=== PATIENT | male | born 1960 | race Caucasian/White ===

== ENCOUNTER 2018-03-30 06:59 | Inpatient (IN) | payer BC ==
[~2018-03-30] VITALS: Ht 193 cm; Wt 117.9 kg
[2018-03-30 07:05] VITALS: Ht 193 cm; Wt 117.9 kg
[2018-03-30 08:03] LABS: PLATELET COUNT 165 x10^3mcL (130-400); RED CELL DISTRIBUTION WIDTH 12.8 % (11.5-14.5)
[2018-03-30 08:17] LABS: CALCIUM 9.2 mg/dL (8.5-10.1); CHLORIDE SERUM 98 mmol/L (98-107); CREATININE SERUM 1.2 mg/dL (0.7-1.3); GFR1 > 60 mL/min; GLUCOSE SERUM 188 mg/dL (74-106); POTASSIUM SERUM 3.7 mmol/L (3.5-5.1); SODIUM SERUM 134 mmol/L (136-145)
[2018-03-30 08:22] LABS: BAND NEUTROPHIL 7 % (0-10); BASOPHIL 0 % (0-2); MONOCYTE 2 % (0-7); SEGMENTED NEUTROPHILS 88 % (37-75)
[2018-03-30 08:23] LABS: PLATELET MORPHOLOGY PLATELETS DECREASED; rbc morphology (normal/abnorm) ABNORMAL (NORMAL)
[2018-03-30 08:28] LABS: ALBUMIN 3.8 g/dL (3.4-5.0); ALKALINE PHOSPHATASE 88 U/L (46-116); ALT/SGPT 41 U/L (16-63); AMYLASE 28 U/L (25-115); AST/SGOT 22 U/L (15-37); BILIRUBIN TOTAL 1.78 mg/dL (0.20-1.00); CHOLESTEROL 145 mg/dL (<200); HDL CHOLESTEROL 37 mg/dL (40-60); LIPASE 133 IU/L (73-393); MAGNESIUM 1.3 mg/dL (1.8-2.4); TOTAL PROTEIN, SERUM 7.1 g/dL (6.4-8.2)
[2018-03-30 09:10] LABS: microscopic required? NO
[2018-03-30 09:36] LABS: urine erythrocyte NEGATIVE (NEGATIVE)
[2018-03-30] MEDS ORDERED: ATORVASTATIN CA40 M1 PO (10:16)
[2018-03-30] MEDS ORDERED: METFORMIN HCL750 MG PO (10:16)
[2018-03-30] MEDS ORDERED: GOOD SENSE OMEP20 MG PO (10:16)
[2018-03-30 10:32] LABS: AMPHETAMINE QUAL UR NONE DETECTED (See below)
[2018-03-30 12:11] LABS: T3 TOTAL 0.86 ng/mL
[2018-03-30 12:13] LABS: FREE T4 0.91 ng/dL (0.76-1.46); FREE THYROXINE INDEX 1.8 ug/dL (1.4-4.5); T4(THYROXINE) 5.4 ug/dL (4.7-13.3)
[2018-03-30 13:17] VITALS: BP 96/60
[2018-03-30 13:44] VITALS: BP 80/43
[2018-03-30 15:00] VITALS: BP 105/78
[2018-03-30 20:00] VITALS: BP 112/75
[2018-03-31 00:17] VITALS: BP 108/74
[2018-03-31 03:05] VITALS: BP 99/54
[2018-03-31 05:21] LABS: PLATELET COUNT 138 x10^3mcL (130-400); RED CELL DISTRIBUTION WIDTH 13.1 % (11.5-14.5)
[2018-03-31 05:22] LABS: BASOPHIL % 0 % (0-2)
[2018-03-31 05:28] LABS: CALCIUM 7.3 mg/dL (8.5-10.1); CARBON DIOXIDE 25.1 mmol/L (21-32); CHLORIDE SERUM 103 mmol/L (98-107); CREATININE SERUM 0.9 mg/dL (0.7-1.3); GFR1 > 60 mL/min; GLUCOSE SERUM 160 mg/dL (74-106); POTASSIUM SERUM 3.5 mmol/L (3.5-5.1); SODIUM SERUM 136 mmol/L (136-145)
[2018-03-31 07:21] VITALS: BP 98/63
[2018-03-31 11:30] VITALS: BP 114/59
[2018-03-31 15:30] VITALS: BP 122/74
[2018-03-31 21:12] VITALS: BP 112/68
[2018-04-01 06:05] VITALS: BP 122/79
[2018-04-01 09:25] VITALS: BP 127/79
[2018-04-01] MEDS ORDERED: BACTRIM DS1 TAB PO (10:32)
[2018-04-01 12:31] VITALS: BP 135/81
[2018-04-01 12:38] VITALS: BP 135/81
[2018-04-01 13:55] LABS: ALKALINE PHOSPHATASE 103 U/L (46-116); ALT/SGPT 71 U/L (16-63); AST/SGOT 57 U/L (15-37); BILIRUBIN TOTAL 1.35 mg/dL (0.20-1.00); CALCIUM 8.3 mg/dL (8.5-10.1); CARBON DIOXIDE 25.7 mmol/L (21-32); CHLORIDE SERUM 104 mmol/L (98-107); CREATININE SERUM 0.9 mg/dL (0.7-1.3); GFR1 > 60 mL/min; GLUCOSE SERUM 188 mg/dL (74-106); POTASSIUM SERUM 3.6 mmol/L (3.5-5.1); SODIUM SERUM 138 mmol/L (136-145); TOTAL PROTEIN, SERUM 6.3 g/dL (6.4-8.2)
[2018-04-01 14:06] LABS: ALBUMIN 2.9 g/dL (3.4-5.0)
== END 2018-04-01 15:23 | disposition home or self-care (01) | DRG 872 ==
LOC: ED 06:59 → DU 09:17 → IC 09:17 → DU 10:55 → IC 14:31 → DU 03-31 19:11
PROVIDERS: Emergency Medicine; Family Medicine; Internal Medicine
DX: A41.9 Sepsis, unspecified organism (principal); E87.1 Hypo-osmolality and hyponatremia; L03.115 Cellulitis of right lower limb; E78.5 Hyperlipidemia, unspecified; Z96.653 Presence of artificial knee joint, bilateral; E11.65 Type 2 diabetes mellitus with hyperglycemia; E83.42 Hypomagnesemia; E78.00 Pure hypercholesterolemia, unspecified; E66.01 Morbid (severe) obesity due to excess calories; R65.20 Severe sepsis without septic shock; E11.51 Type 2 diabetes mellitus with diabetic peripheral angiopathy without gangrene; E11.621 Type 2 diabetes mellitus with foot ulcer; E11.40 Type 2 diabetes mellitus with diabetic neuropathy, unspecified; L97.519 Non-pressure chronic ulcer of other part of right foot with unspecified severity; Z90.89 Acquired absence of other organs; Z88.0 Allergy status to penicillin; Z83.3 Family history of diabetes mellitus; Z79.84 Long term (current) use of oral hypoglycemic drugs; Z79.899 Other long term (current) drug therapy; Z68.31 Body mass index [BMI] 31.0-31.9, adult
CPT/HCPCS: 36600; 83880; 84439; 97535-GP; G0480; J1644; J1956; J2543; J3370; J3475; J3490; J7030; J7040; Q0092

== ENCOUNTER 2018-12-12 04:24 | Emergency (ER) | payer SELFPAY ==
[~2018-12-12] VITALS: Ht 182.9 cm; Wt 113.4 kg
[~2018-12-12 04:24] MED LIST: ATORVASTATIN CA40 M1 PO; BACTRIM DS1 TAB PO; GOOD SENSE OMEP20 MG PO; METFORMIN HCL750 MG PO
[2018-12-12 04:31] VITALS: Ht 182.9 cm; Wt 113.4 kg
[2018-12-12 05:40] LABS: BASOPHIL % 0.3 % (0-2); PLATELET COUNT 160 x10^3mcL (130-400); RED CELL DISTRIBUTION WIDTH 13.7 % (11.5-14.5)
[2018-12-12 05:52] LABS: CARBON DIOXIDE 28.2 mmol/L (21-32); CHLORIDE SERUM 102 mmol/L (98-107); GFR1 > 60 mL/min; GLUCOSE SERUM 136 mg/dL (74-106); SODIUM SERUM 140 mmol/L (136-145)
[2018-12-12 05:56] LABS: ALBUMIN 3.9 g/dL (3.4-5.0); ALKALINE PHOSPHATASE 66 U/L (46-116); ALT/SGPT 46 U/L (16-63); AST/SGOT 21 U/L (15-37); BILIRUBIN TOTAL 1.09 mg/dL (0.20-1.00); LIPASE 142 IU/L (73-393); TOTAL PROTEIN, SERUM 7.3 g/dL (6.4-8.2)
[2018-12-12 07:50] VITALS: BP 135/83
== END 2018-12-12 07:50 | disposition home or self-care (01) ==
LOC: ED 04:24
PROVIDERS: Emergency Medicine
DX: J38.5 Laryngeal spasm (principal); K21.9 Gastro-esophageal reflux disease without esophagitis; R06.02 Shortness of breath
CPT/HCPCS: 36415; J7613